=== PATIENT | male | born 1985 | race Caucasian/White ===

== ENCOUNTER 2017-06-08 21:12 | Outpatient (CLI) | payer OTHER | END 2017-06-08 21:13 | disposition critical access hospital (66) | LOC: EMS 21:12 | PROVIDERS: ATTEND Surgery | DX: R07.9 Chest pain, unspecified (principal) | CPT/HCPCS: A0425; A0429 ==

== ENCOUNTER 2017-06-08 21:26 | Emergency (ER) | payer OTHER ==
--- NOTE | 2017-06-08 21:44 | ED Physician Documentation ---
PD HPI CHEST PAIN - Stated complaint Stated Complaint: CP - Chief complaint Chief Complaint: Cardiac - History obtained from History obtained from: Patient - History of Present Illness Timing - onset: Today Timing - onset during: Rest Timing - duration: Seconds (he has had intermittent sharp CP left side through the late afternoon/evening, just few seconds at a time. Left chest just under medial breast area.) Timing - details: Intermittant Quality: Sharp (he feels like there is a quivering muscle spasm localized to left chest wall, with some sharp pain to it.), Pain Location: Left chest Radiation: Back Worsened by: Palpation. No: Exertion, Inspiration, Movement Associated symptoms: No: Shortness of air, Nausea, Feeling faint / dizzy, General Weakness, Palpitations Similar symptoms before: Has not had sx before Review of Systems Constitutional: denies: Fever, Chills Nose: denies: Rhinorrhea / runny nose, Congestion Throat: denies: Sore throat Cardiac: reports: Chest pain / pressure. denies: Palpitations, Pedal edema, Calf pain Respiratory: denies: Cough PD PAST MEDICAL HISTORY - Past Medical History Cardiovascular: None Respiratory: None Neuro: None Endocrine/Autoimmune: None - Present Medications Home Medications: Ambulatory Orders Medication Instructions Recorded Confirmed Ibuprofen [Motrin] 600 mg PO TID #20 tab 06/08/17 - Allergies Allergies/Adverse Reactions: Allergies Allergy/AdvReac Type Severity Reaction Status Date / Time No Known Drug Allergies Allergy Verified 06/08/17 21:33 - Social History Does the pt smoke?: No Does the pt drink ETOH?: No Does the pt have substance abuse?: No - Family History Family history: denies: CAD, Sudden , Venous thromboembolism PD ED PE NORMAL - Vitals Vital signs reviewed: Yes - General General: Alert and oriented X 3, No acute distress, Well developed/nourished - HEENT HEENT: Pharynx benign - Neck Neck: Supple, no meningeal sign, No adenopathy - Cardiac Cardiac: RRR, No murmur - Respiratory Respiratory: Clear bilaterally, Other (there is not any chestwall tenderness. ) - Abdomen Abdomen: Soft, Non tender Results - Vitals Vitals: Vital Signs - 24 hr 06/08/17 06/08/17 06/08/17 21:31 21:39 22:18 Temperature 36.6 C Heart Rate 57 L 59 L 54 L Respiratory 16 15 16 Rate Blood Pressure 127/72 127/78 O2 Saturation 98 99 99 06/08/17 23:05 Temperature Heart Rate 52 L Respiratory 16 Rate Blood Pressure 123/76 O2 Saturation 98 Oxygen O2 Source Room air - EKG (time done) 21:34 Rate: Rate (enter#) (55) Rhythm: Sinus bradycardia [place]: Normal Intervals: Normal SC QRS: Normal Ischemia: Normal ST segments, ST elevation c/w repol. No: ST elevation c/w ischemia, ST depression, T wave inversion - Labs Labs: Laboratory Tests 06/08/17 06/08/17 06/08/17 22:19 22:19 22:19 WBC 7.4 RBC 4.63 L Hgb 14.4 Hct 41.0 L MCV 88.5 MCH 31.2 H MCHC 35.2 RDW 12.5 Plt Count 265 MPV 7.3 L Neut # 3.0 Lymph # 3.7 H [place] # 0.6 Eos # 0.1 Baso # 0.1 Absolute Nucleated RBC 0.00 Nucleated RBC % 0.0 Sodium 137 Potassium 3.6 Chloride 98 L Carbon Dioxide 27 Anion Gap 12.0 BUN 15 Creatinine 1.2 Estimated GFR (MDRD) 70 L Glucose 102 H Calcium 9.7 Magnesium 2.4 Total Bilirubin 0.4 AST 37 ALT 68 H Alkaline Phosphatase 57 Troponin I < 0.04 C-Reactive Protein 1.0 Total Protein 7.9 Albumin 4.8 Globulin 3.1 Albumin/Globulin Ratio 1.5 Lipase 42 PD MEDICAL DECISION MAKING - ED course Complexity details: reviewed results (ECG normal for age/body build. No acute lab/xray process. ), considered differential (seems muscular but also consider intermittent arrhythmia feeling like quivering over heart area. He did not have any episodes here so cannot correlate heart moniter findings. ), d/w patient Departure - Departure Disposition: 01 Home, Self Care Clinical Impression: Muscle spasm Chest pain Qualifiers: Chest pain type: other chest pain Qualified Code(s): R07.89 - Other chest pain Condition: Stable Record reviewed to determine appropriate education?: Yes Instructions: ED Chest Pain Atypical Unkn Cause Follow-Up: PERE[facility] Cabanak[facility] Garsia [Provider Group] Prescriptions: Ibuprofen [Motrin] 600 mg PO TID #20 tab Comments: There is no signs of heart muscle injury or irritation and your electrolytes are okay. There is no signs of more serious causes and so presume the chest wall muscle did just have some spasming. Use some ibuprofen 2-3 times a day for the next several days. Avoid or lessen chest wall muscle use such as push- ups for 2-3 days. Recheck if not better or recurrent symptoms. If you do have recurring episodes, follow-up with your primary care for consideration of a heart monitor to check the rhythm over a longer period of time such as a week. Discharge Date/Time: 06/08/17 23:05
[2017-06-08] MEDS ORDERED: IBUPROFEN 600 MG TABLET PO STA (22:02)
[2017-06-08] MEDS ORDERED: IBUPROFEN 600 MG TABLET PO ONE (22:12)
[2017-06-08 22:26] LABS: BASOPHILS # (AUTO) 0.1 10^3/uL (0.0-0.1); BASOPHILS % (AUTO) 0.8 %; EOSINOPHILS # (AUTO) 0.1 10^3/uL (0.0-0.7); EOSINOPHILS % (AUTO) 1.1 %; HGB - HEMOGLOBIN 14.4 g/dL (14.0-18.0); LYMPHOCYTES # (AUTO) 3.7 10^3/uL (1.5-3.5); LYMPHOCYTES % (AUTO) 50.2 %; MEAN CORPUSCULAR HEMOGLOBIN 31.2 pg (27.0-31.0); MEAN CORPUSCULAR HGB CONC 35.2 g/dL (32.0-36.0); MEAN CORPUSCULAR VOLUME 88.5 fL (80.0-94.0); MEAN PLATELET VOLUME 7.3 fL (7.4-11.4); MONOCYTES # (AUTO) 0.6 10^3/uL (0.0-1.0); MONOCYTES % (AUTO) 7.6 %; NEUTROPHILS % (AUTO) 40.3 %; RED BLOOD COUNT 4.63 10^6/uL (4.70-6.10); RED CELL DISTRIBUTION WIDTH 12.5 % (12.0-15.0); UNCORRECTED WHITE BLOOD COUNT 7.4 x10^3/uL; WHITE BLOOD COUNT 7.4 x10^3/uL (4.8-10.8)
[2017-06-08 22:46] LABS: ALBUMIN/GLOBULIN RATIO 1.5 (1.0-2.2); BILIRUBIN,TOTAL 0.4 mg/dL (0.2-1.0); CALCIUM 9.7 mg/dL (8.5-10.3); CREATININE 1.2 mg/dL (0.6-1.2); MAGNESIUM 2.4 mg/dL (1.7-2.8); POTASSIUM 3.6 mmol/L (3.5-5.0); TOTAL PROTEIN 7.9 g/dL (6.7-8.2)
[2017-06-08 23:11] VITALS: BP 123/76
== END 2017-06-08 23:05 | disposition home or self-care (01) ==
LOC: EDUNIT# → ED 21:26
DX: R07.89 Other chest pain (principal); M62.838 Other muscle spasm
CPT/HCPCS: 36415; 80053; 83690; 83735; 84484; 85025; 86140; 93005; 99283; 99284; A9270

== ENCOUNTER 2022-01-14 09:52 | Outpatient (CLI) | payer OTHER ==
--- NOTE | 2022-01-14 15:59 | XRAY Report ---
PROCEDURE: Cervical Spine w/Flex/Ext INDICATIONS: Neck pain TECHNIQUE: 7 views of the cervical spine were acquired. COMPARISON: None. FINDINGS: Normal cervical spine vertebral body height and alignment. No change in alignment upon flexion or ext ension. No suspicious lytic or blastic osseous lesion. No significant degenerative changes. IMPRESSION: Unremarkable exam. No acute finding, dynamic instability, or significant degenerative ch anges. Reviewed by: Suman Babb MD on 01/14/2022 3:57 PM PDT Approved by: Suman Babb MD on 01/14/2022 3:57 PM PDT Station ID: [id number]
--- NOTE | 2022-01-15 08:30 | XRAY Report ---
PROCEDURE: Thoracic Spine 2 View INDICATIONS: Upper back pain TECHNIQUE: 2 views of the thoracic spine were acquired. COMPARISON: None. FINDINGS: Bones: No degenerative changes. No fractures or dislocations. No suspicious bony lesions. Soft tissues: No paravertebral stripe thickening. IMPRESSION: Normal thoracic spine radiographs. Reviewed by: Suman Babb MD on 01/15/2022 8:28 AM PDT Approved by: Suman Babb MD on 01/15/2022 8:28 AM PDT Station ID: [id number]
--- NOTE | 2022-01-15 08:30 | XRAY Report ---
PROCEDURE: Lumbar Spine w/Flex/Ext INDICATIONS: Low back pain TECHNIQUE: AP & Lateral views of the lumbar spine were acquired, followed by flexion & extension marylin ding views of the lumbar spine. COMPARISON: None. FINDINGS: Bones: 5 [id number] vertebrae are present. There is normal bony alignment. No vertebral body compression fractures. No suspicious bony lesions. No degenerative changes. No dynamic instability. Soft tissues: Overlying bowel gas pattern is normal. No suspicious soft tissue calcifications. Flexion/extension: There is normal range of motion, with preserved normal alignment. IMPRESSION: Normal study. Reviewed by: Suman Babb MD on 01/15/2022 8:29 AM PDT Approved by: Suman Babb MD on 01/15/2022 8:29 AM PDT Station ID: [id number]
== END 2022-01-14 09:53 | disposition home or self-care (01) ==
LOC: DI.N 09:52
PROVIDERS: ATTEND Chiropractor
DX: M54.2 Cervicalgia (principal); M54.6 Pain in thoracic spine; M54.50 Low back pain, unspecified